=== PATIENT | male | born 1980 | race Caucasian/White ===

== ENCOUNTER 2017-07-28 12:52 | Emergency (ER) | payer SELFPAY ==
[~2017-07-28] VITALS: Ht 167.6 cm; Wt 142.5 kg
[2017-07-28 12:57] VITALS: BP 142/79
--- NOTE | 2017-07-28 13:37 | NUR ---
PT PLACED IN ROOM 2
[2017-07-28] MEDS ORDERED: KETOROLAC 30 MG/ML VIAL IM ONE (13:40)
--- NOTE | 2017-07-28 13:41 | NUR ---
PT COMES TO ER FOR GRADUAL ONSET HEADCHE X 2 MONTHS, PROGRESSIVELY GETTING WORSE IN THE LAST TWO DAYS. PAIN IS THROBBING IN SENSATION TO FRONTAL AREA ONLY. DENIES ANY CHANGES IN VISION, DENIES ANY FEVERS/CHILLS. RESP EVEN AND UNLABORED, ON RA@99%. NEUROGICALLI INTACT, PT AAOX4. NO FACAIAL DROOP NOTED, [employer]IST EQUAL.
--- NOTE | 2017-07-28 13:45 | NUR ---
DR HAINES IN ROOM FOR EXAM
[2017-07-28] MEDS ORDERED: KETOROLAC 30 MG/ML VIAL ONE (13:51)
--- NOTE | 2017-07-28 13:53 | NUR ---
Pt was brought to x-ray
[2017-07-28] MEDS ORDERED: DICYCLOMINE 20 MG/2 ML VIAL IM ONE (14:10)
[2017-07-28 14:16] LABS: BASOPHILS # (AUTO) 0.3 K/uL (0.00-0.22); EOSINOPHILS # (AUTO) 0.2 K/uL (0-0.4); HEMATOCRIT 42.8 % (36-52); HEMOGLOBIN 14.6 g/dL (12.0-18.0); LYMPHOCYTES # (AUTO) 2.8 K/uL (2.0-11.5); MEAN CORPUSCULAR HEMOGLOBIN 29 pg (27-31); MEAN CORPUSCULAR HGB CONC 34 g/dL (33-37); MEAN CORPUSCULAR VOLUME 85 fL (80-94); NEUTROPHILS # (AUTO) 4.3 K/uL (1.8-7.7); PLATELET COUNT (AUTO) 200 K/uL (140-450); RED BLOOD CELL COUNT(AUTO) 5.04 MIL/uL (4.20-6.10); WHITE BLOOD COUNT (AUTO) 8.6 K/uL (4.8-10.8)
[2017-07-28 15:16] LABS: ANION GAP 12.1 (8-16); CREATININE 0.9 mg/dL (0.7-1.3); POTASSIUM 4.1 mmol/L (3.5-5.1)
[2017-07-28 15:29] VITALS: BP 139/80
== END 2017-07-28 15:30 | disposition home or self-care (01) ==
LOC: MED 12:52
DX: R51 Headache (principal)
CPT/HCPCS: 36415; 70450; 80048; 85025; 96372; 99285; J0500; J1885